=== PATIENT | male | born 1975 | race Caucasian/White ===

== ENCOUNTER 2022-05-24 07:57 | Emergency (ER) | payer OTHER, SELFPAY ==
[2022-05-24 08:03] VITALS: BP 146/97; PULSE 82; RESP 18; TEMP 36.7; O2SAT 96; BMI 28.5
[2022-05-24] MEDS: ACETAMINOPHEN 500 MG TABLET 1000 MG PO (08:38)
--- NOTE | 2022-05-24 10:09 | ED.NURSE ---
Irrigated lac on pt L thumb with 500mLs of NS.
--- NOTE | 2022-05-24 16:03 | ED_ITS ---
HPI - Wound/Laceration General Date Seen: 05/24/22 Chief Complaint: Laceration/Wound Stated Complaint: Lac L thumb Time Seen by Provider: 05/24/22 08:07 Source: patient Mode of arrival: ambulatory Limitations: no limitations History of Present Illness HPI narrative: 47-year-old gentleman presents here with a cut on his left thumb, this occurred while he was using a knife, his last tetanus was updated 9 years ago, is probably due. Does not have any significant numbness and tingling, the cut is just distal to the IP joint, on the radial side of his left thumb, more plantar than dorsal. Is approximately 3 cm in length, if he has some significant pain with this however. Related Data Home Medications Medication Instructions Recorded Confirmed amlodipine 5 mg tablet mg 05/24/22 oxybutynin chloride 10 mg mg PO 05/24/22 tablet,extended release 24 hr Allergies Allergy/AdvReac Type Severity Reaction Status Date / Time No Known Drug Allergies Allergy Verified 05/24/22 08:06 Review of Systems Status of ROS: Reports: 6 or more systems reviewed and unremarkable except as noted in History and below PFSH PFS Social History Smoking Status: Unknown if ever smoked How often do you have a drink containing alcohol: monthly or less AUDIT-C Alcohol total score: 1 Non-prescribed substance use: denies use Exam Narrative: Exam Narrative: Patient is examined, left thumb shows excellent IP flexion extension, there is no limitations MCP is also normal. Cap refills normal, maybe a little bit of sensory abnormality just distal to the cut, this clearly is in the area where they would leave this anyway, hand up proximally month for repair. I explained to him, the it would be advantageous to close this, we had him soak this for the next the 30 minutes, digital block was then done with 0.25% Marcaine, with no epinephrine, total of 5 mL was used, this was further bolstered with the 1% xylocaine into the wound. X3 mL. Wound was irrigated out with 200 mL of normal saline under pressure, sterile prep and drape were done, 2 simple 4-0 sutures were used to approximate the wound, no evidence of any injury to the deep structures, he just into the subcutaneous tissue, closed without problem. Const: Vital Signs, click to edit/add: Vital Signs - 24 hr 05/24/22 08:03 Temperature 98.1 F Pulse Rate [Right Pulse Oximeter] 82 Respiratory Rate 18 Blood Pressure [Ri ght Upper Arm] 146/97 H Pulse Oximetry 96 Oxygen Delivery Me thod Room Air Documenting provider has reviewed patient's vital signs: yes Course Course Hospital Course: Explained to the patient that we will have him use the Stack finger splint tomorrow, to Guard this for the next 3-5 days, he sutures should come out in 10 days, primary care would be able to help us with this, bacitracin daily to the wound. He then would come back if signs symptoms infection bleeding, thought he might have some significant pain after, I did review the [facility] website there is no evidence of any illicit prescriptions, or any suggestion overuse of narcotics. Informed consent risks benefits are discussed in detail, he will come back and be seen if these occur. Vital Signs Vital signs: Initial Vital Signs Temperature 98.1 F 05/24/22 08:03 Temperature Source Temporal Artery Scan 05/24/22 08:03 Pulse Rate 82 05/24/22 08:03 Respiratory Rate 18 05/24/22 08:03 Blood Pressure 146/97 H 05/24/22 08:03 Blood Pressure Mean 113 05/24/22 08:03 Blood Pressure Position Sitting 05/24/22 08:03 Pulse Oximetry 96 05/24/22 08:03 Oxygen Delivery Method 05/24/22 08:03 Vital Signs Temperature 98.1 F 05/24/22 08:03 Pulse Rate 82 05/24/22 08:03 Respiratory Rate 18 05/24/22 08:03 Blood Pressure 146/97 H 05/24/22 08:03 Pulse Oximetry 96 05/24/22 08:03 Oxygen Delivery Method 05/24/22 08:03 Temperature 98.1 F 05/24/22 08:03 Pulse Rate 82 05/24/22 08:03 Respiratory Rate 18 05/24/22 08:03 Blood Pressure 146/97 H 05/24/22 08:03 Pulse Oximetry 96 05/24/22 08:03 Oxygen Delivery Method 05/24/22 08:03 MDM - Wound/Laceration Differential Diagnosis Differential diagnosis: Likely laceration, abscess and abrasion Medical Records Attestation: I reviewed the patient's medical records. Lab Data Attestation: I reviewed the patient's lab results. Discharge Plan Discharge Clinical Impression: Laceration Patient Disposition: Home w/ Parent or Adult Condition: Stable Instructions: Care For Your Stitches (DC), Laceration (ED) Additional Instructions: Home rest bacitracin daily on the wound, leave the dressing on until tomorrow, then you may take this off please give him also a stack finger splint that for his right thumb. Sutures should come out in 10 days, follow-up with primary care for this or if you feel comfortable you can do this at home. Reasons to come back to the ER would be increasing pain, fevers redness. I did give you prescription for InStent meds for stronger pain medications if he needs this for a couple days, there is some risk of addiction with the so please be careful and once here done with the medications if you do not use them all throw them away. Prescriptions: No Action oxybutynin chloride 10 mg tablet extended release 24hr PO Label Comments: TAKE ONE TABLET BY MOUTH ONE TIME DAILY amlodipine 5 mg tablet Label Comments: TAKE ONE TABLET BY MOUTH ONE TIME DAILY Follow Up/Referrals: Waleska Portillo PA-C [Primary Care Provider] - Stand Alone Forms: [facility] Info Instructions Procedures Laceration Laceration 1: Written consent by: patient Verification/time out: correct patient Site: hand Side (If applicable): left Size (cm): 2 Description: linear and clean Depth: simple, single layer Local Anesthetic: bupivacaine 0.25% Pre-repair: wound explored, irrigated extensively, deep structures intact and wound margins revised Skin layer closed with: nylon Size (cm): 4-0 Number of sutures: 2 Technique: simple, interrupted Wound cleansing: soap (Hibiclens) Estimated blood loss (if any): none Conclusion: patient tolerated procedure
== END 2022-05-24 11:02 | disposition home or self-care (01) ==
PROVIDERS: Emergency Provider Family Medicine; PCP Physician Assistant Medical
DX: S61.012A Laceration without foreign body of left thumb without damage to nail, initial encounter (principal); W26.0XXA Contact with knife, initial encounter
CPT/HCPCS: 12001; 99283; A9270

== ENCOUNTER 2022-12-29 16:56 | Emergency (ER) | payer OTHER, SELFPAY ==
[2022-12-29 17:36] VITALS: BP 158/109; PULSE 75; RESP 16; TEMP 36.5; O2SAT 96; BMI 29.2
[2022-12-29] MEDS: CYCLOBENZAPRINE HCL 10 MG TABLET PO (20:02)
[2022-12-29] MEDS: KETOROLAC 30 MG/ML inj IM (20:02)
[2022-12-29] MEDS: OXYCODONE 5 MG TABLET PO (20:36)
--- NOTE | 2022-12-29 21:20 | ED_ITS ---
HPI - General Adult General Date Seen: 12/29/22 Chief complaint: Back Injury/Pain Stated complaint: Lower back injury Time Seen by Provider: 12/29/22 19:48 Source: patient Mode of arrival: ambulatory Limitations: no limitations History of Present Illness HPI narrative: Patient is a 47-year-old male with no pertinent medical problems presenting to emergency department for back pain. He states she was at work when suddenly his back locked up and he felt pain radiating down his right leg. States this has never happened before. It was so bad he was unable to walk. Did take some ibuprofen which she said helped the pain a little bit while he was riding in a car. Says the pain was so bad he was unable to drive himself. He has never had this issue before. States he was active all morning and regularly goes to the gym. Denies saddle anesthesia, IV drug use, loss of bowel or bladder control. States he has gone to bathroom multiple times and feels like he is emptying his bladder when he does. Related Data Home Medications Medication Instructions Recorded Confirmed amlodipine 5 mg tablet mg 05/24/22 oxybutynin chloride 10 mg mg PO 05/24/22 tablet,extended release 24 hr ibuprofen 12/29/22 Allergies Allergy/AdvReac Type Severity Reaction Status Date / Time No Known Drug Allergies Allergy Verified 12/29/22 17:40 Review of Systems Narrative: Otherwise negative unless in HPI PFSH PFSH Social History Smoking Status: Former smoker How often do you have a drink containing alcohol: 2-4 times a month AUDIT-C Alcohol total score: 2 Non-prescribed substance use: denies use Exam Narrative: Exam Narrative: Const: Well-nourished, Well-developed, in mild distress Eyes: PERRL, no conjunctival injection, and symmetrical lids ENMT: Atraumatic external nose and ears. Moist mucous membranes. MSK:Extremities w/o deformity, positive bilateral straight leg test. Very tense paraspinal muscles. Skin: Warm, Dry. No rashes or lesions. Neuro: Normal Muscle tone, No focal neurological deficits. Psych: Awake, Alert, & Oriented x3. Appropriate mood and affect. Const: Vital Signs, click to edit/add: Vital Signs - 24 hr 12/29/22 17:36 Temperature 97.7 F Pulse Rate [Left P ulse Oximeter] 75 Respiratory Rate 16 Blood Pressure [Ri ght Upper Arm] 158/109 H Pulse Oximetry 96 Oxygen Delivery Me thod Room Air Course Vital Signs Vital signs: Initial Vital Signs Temperature 97.7 F 12/29/22 17:36 Temperature Source Temporal Artery Scan 12/29/22 17:36 Pulse Rate 75 12/29/22 17:36 Respiratory Rate 16 12/29/22 17:36 Blood Pressure 158/109 H 12/29/22 17:36 Blood Pressure Mean 125 H 12/29/22 17:36 Blood Pressure Position Sitting 12/29/22 17:36 Pulse Oximetry 96 12/29/22 17:36 Oxygen Delivery Method Room Air 12/29/22 17:36 Vital Signs Temperature 97.7 F 12/29/22 17:36 Pulse Rate 75 12/29/22 17:36 Respiratory Rate 16 12/29/22 17:36 Blood Pressure 158/109 H 12/29/22 17:36 Pulse Oximetry 96 12/29/22 17:36 Oxygen Delivery Method Room Air 12/29/22 17:36 Temperature 97.7 F 12/29/22 17:36 Pulse Rate 75 12/29/22 17:36 Respiratory Rate 16 12/29/22 17:36 Blood Pressure 158/109 H 12/29/22 17:36 Pulse Oximetry 96 12/29/22 17:36 Oxygen Delivery Method Room Air 12/29/22 17:36 Medical Decision Making MDM Narrative Medical decision making narrative: Patient is a 47-year-old male presented emergency department for back pain. States it happens only while he was standing had a sink. Says he has been active all morning without issues and has never had back problems before. He has positive bilateral straight leg test which makes me believe he herniated a disc. Patient is initially given Toradol and Flexeril was did help the pain but be more tolerable but he is unable to stand up still. We then gave the patient oxycodone after this he was able to stand up and slowly walk. Since there is no trauma do not believe imaging is necessary at this time. Patient is doing well and be discharged home with oxycodone and Flexeril. Patient was informed to follow-up with his primary care provider and was told him he will possibly knee in physical therapy. He is agreeable to this plan. Discharge Plan Discharge Clinical Impression: Strain of lumbar region Qualifiers: Encounter type: initial encounter Qualified Code(s): S39.012A - Strain of muscle, fascia and tendon of lower back, initial encounter Patient Disposition: Home, Self-Care Condition: Stable Instructions: P.R.I.C.E. Treatment (ED), Lower Back Exercises (ED) Additional Instructions: Follow-up with the primary care provider if symptoms are not improving. Take Tylenol and ibuprofen for pain if that is not working you can use the oxycodone. Also take the Flexeril as needed for pain. Return for new worsening symptoms. Make sure to keep the staff mobile subcu back does not stiffen up. You likely have a herniated disc so may need physical therapy. Prescriptions: No Action oxybutynin chloride 10 mg tablet extended release 24hr PO Patient Comments: TAKE ONE TABLET BY MOUTH ONE TIME DAILY amlodipine 5 mg tablet Patient Comments: TAKE ONE TABLET BY MOUTH ONE TIME DAILY ibuprofen Follow Up/Referrals: Waleska Portillo [place]udwin [Primary Care Provider] - Stand Alone Forms: [email or web address] Info Instructions
== END 2022-12-29 21:30 | disposition home or self-care (01) ==
PROVIDERS: Emergency Provider Student in an Organized Health Care Education/Training Program; PCP Physician Assistant Medical
DX: S39.012A Strain of muscle, fascia and tendon of lower back, initial encounter (principal)
CPT/HCPCS: 96372; 99283; A9270; J1885